=== PATIENT | male | born 1960 | race African-American/Black ===

== ENCOUNTER → 2016-03-29 | Outpatient (CLI) | payer MEDICARE ==
[~2016-03-29] VITALS: Ht 185.4 cm; Wt 145.0 kg
[~2016-03-29] MED LIST: CALC25 PO; METO50 PO; MYCO360T3 PO; NIFE60TA12 PO; OXYC30TA2 PO; PRED5 PO; TACR4TAB PO; WARF5 PO
[2016-03-29 12:09] VITALS: BP 135/87
== END | disposition home or self-care (01) ==
LOC: SRCNTR 11:52
PROVIDERS: ATTEND Hospitalist
DX: I10 Essential (primary) hypertension (principal); I49.9 Cardiac arrhythmia, unspecified; G89.29 Other chronic pain; Z90.5 Acquired absence of kidney
CPT/HCPCS: G0463

== ENCOUNTER → 2016-04-26 | Outpatient (CLI) | payer MEDICARE ==
[~2016-04-26] VITALS: Ht 185.4 cm; Wt 145.0 kg
[~2016-04-26] MED LIST changes: -METO50 PO
[2016-04-26 11:31] VITALS: BP 115/91
== END | disposition home or self-care (01) ==
LOC: SRCNTR 11:14
PROVIDERS: ATTEND Hospitalist
DX: I10 Essential (primary) hypertension (principal); I49.9 Cardiac arrhythmia, unspecified; I48.91 Unspecified atrial fibrillation; G89.4 Chronic pain syndrome; M54.9 Dorsalgia, unspecified; Z94.0 Kidney transplant status
CPT/HCPCS: G0463

== ENCOUNTER → 2016-05-21 | Outpatient (CLI) | payer MEDICARE ==
[~2016-05-21] VITALS: Ht 185.4 cm; Wt 148.0 kg
[2016-05-21 09:53] VITALS: BP 147/83
== END | disposition home or self-care (01) ==
LOC: SRCNTR 09:36
PROVIDERS: ATTEND Hospitalist
DX: I10 Essential (primary) hypertension (principal); I48.91 Unspecified atrial fibrillation; G89.4 Chronic pain syndrome; Z94.0 Kidney transplant status
CPT/HCPCS: G0463

== ENCOUNTER → 2016-06-21 | Outpatient (CLI) | payer MEDICARE ==
[~2016-06-21] VITALS: Ht 185.4 cm; Wt 139.0 kg
[~2016-06-21] MED LIST changes: +METO50 PO
[2016-06-21 09:51] VITALS: BP 148/101
== END | disposition home or self-care (01) ==
LOC: SRCNTR 09:48
PROVIDERS: ATTEND Hospitalist
DX: I10 Essential (primary) hypertension (principal); G89.4 Chronic pain syndrome; M62.838 Other muscle spasm; I49.9 Cardiac arrhythmia, unspecified; M54.9 Dorsalgia, unspecified; Z94.0 Kidney transplant status
CPT/HCPCS: G0463

== ENCOUNTER → 2016-07-29 | Outpatient (CLI) | payer MEDICARE ==
[~2016-07-29] VITALS: Ht 185.4 cm; Wt 144.0 kg
[2016-07-29 09:54] VITALS: BP 152/80
== END | disposition home or self-care (01) ==
LOC: SRCNTR 09:53
PROVIDERS: ATTEND Hospitalist
DX: I10 Essential (primary) hypertension (principal); I48.91 Unspecified atrial fibrillation; G89.29 Other chronic pain; Z94.0 Kidney transplant status; Z86.73 Personal history of transient ischemic attack (TIA), and cerebral infarction without residual deficits
CPT/HCPCS: G0463

== ENCOUNTER → 2016-08-27 | Outpatient (CLI) | payer MEDICARE ==
[~2016-08-27] VITALS: Ht 185.4 cm; Wt 141.9 kg
[2016-08-27 09:50] VITALS: BP 155/99
== END | disposition home or self-care (01) ==
LOC: SRCNTR 09:40
PROVIDERS: ATTEND Hospitalist
DX: I10 Essential (primary) hypertension (principal); E11.65 Type 2 diabetes mellitus with hyperglycemia; E78.5 Hyperlipidemia, unspecified; G89.4 Chronic pain syndrome; I48.91 Unspecified atrial fibrillation; Z86.73 Personal history of transient ischemic attack (TIA), and cerebral infarction without residual deficits
CPT/HCPCS: G0463

== ENCOUNTER → 2016-09-24 | Outpatient (CLI) | payer MEDICARE ==
[~2016-09-24] VITALS: Ht 185.4 cm; Wt 147.0 kg
[2016-09-24 09:25] VITALS: BP 166/92
== END | disposition home or self-care (01) ==
LOC: SRCNTR 09:09
PROVIDERS: ATTEND Hospitalist
DX: I10 Essential (primary) hypertension (principal); G89.4 Chronic pain syndrome
CPT/HCPCS: G0463

== ENCOUNTER → 2016-11-04 | Outpatient (CLI) | payer MEDICARE ==
[~2016-11-04] VITALS: Ht 185.4 cm; Wt 146.5 kg
[2016-11-04 09:31] VITALS: BP 151/91
== END | disposition home or self-care (01) ==
LOC: SRCNTR 09:23
PROVIDERS: ATTEND Hospitalist
DX: I10 Essential (primary) hypertension (principal); I48.91 Unspecified atrial fibrillation; G89.4 Chronic pain syndrome; E78.5 Hyperlipidemia, unspecified; Z86.73 Personal history of transient ischemic attack (TIA), and cerebral infarction without residual deficits; Z94.0 Kidney transplant status
CPT/HCPCS: G0463

== ENCOUNTER → 2016-12-02 | Outpatient (CLI) | payer MEDICARE ==
[~2016-12-02] VITALS: Ht 188 cm; Wt 145.0 kg
[~2016-12-02] MED LIST changes: +CARI350 PO
[2016-12-02 11:57] VITALS: BP 141/79
== END | disposition home or self-care (01) ==
LOC: SRCNTR 11:23
PROVIDERS: ATTEND Hospitalist
DX: I10 Essential (primary) hypertension (principal); I49.9 Cardiac arrhythmia, unspecified; I48.91 Unspecified atrial fibrillation; G89.4 Chronic pain syndrome; Z94.0 Kidney transplant status
CPT/HCPCS: G0463

== ENCOUNTER → 2016-12-30 | Outpatient (CLI) | payer MEDICARE ==
[~2016-12-30] VITALS: Ht 188 cm; Wt 144.9 kg
[2016-12-30 09:26] VITALS: BP 153/87
== END | disposition home or self-care (01) ==
LOC: SRCNTR 09:19
PROVIDERS: ATTEND Hospitalist
DX: I10 Essential (primary) hypertension (principal); G89.4 Chronic pain syndrome; I48.91 Unspecified atrial fibrillation; E78.5 Hyperlipidemia, unspecified; Z94.0 Kidney transplant status
CPT/HCPCS: G0463

== ENCOUNTER → 2017-01-27 | Outpatient (CLI) | payer MEDICARE ==
[~2017-01-27] VITALS: Ht 188 cm; Wt 144.9 kg
[~2017-01-27] MED LIST changes: -METO50 PO
[2017-01-27 11:04] VITALS: BP 153/90
== END | disposition home or self-care (01) ==
LOC: SRCNTR 10:51
PROVIDERS: ATTEND Hospitalist
DX: I10 Essential (primary) hypertension (principal); I48.91 Unspecified atrial fibrillation; G89.4 Chronic pain syndrome; Z94.0 Kidney transplant status
CPT/HCPCS: G0463

== ENCOUNTER → 2017-03-24 | Outpatient (CLI) | payer MEDICARE ==
[~2017-03-24] VITALS: Ht 188 cm; Wt 140.0 kg
[2017-03-24 09:29] VITALS: BP 130/86
== END | disposition home or self-care (01) ==
LOC: SRCNTR 09:26
PROVIDERS: ATTEND Hospitalist
DX: I10 Essential (primary) hypertension (principal); E11.9 Type 2 diabetes mellitus without complications; G89.4 Chronic pain syndrome
CPT/HCPCS: G0463

== ENCOUNTER → 2017-04-26 | Outpatient (CLI) | payer MEDICARE ==
[~2017-04-26] VITALS: Ht 188 cm; Wt 141.0 kg
[2017-04-27 09:06] VITALS: BP 127/65
== END | disposition home or self-care (01) ==
LOC: SRCNTR 15:30
PROVIDERS: ATTEND Hospitalist
DX: I10 Essential (primary) hypertension (principal); G89.29 Other chronic pain
CPT/HCPCS: 93288; G0463

== ENCOUNTER → 2017-05-26 | Outpatient (CLI) | payer MEDICARE ==
[~2017-05-26] VITALS: Ht 188 cm; Wt 140.0 kg
[~2017-05-26] MED LIST changes: +HYDR25TA84 PO
[2017-05-26 08:34] VITALS: BP 150/92
== END | disposition home or self-care (01) ==
LOC: SRCNTR 08:16
PROVIDERS: ATTEND Hospitalist
DX: I10 Essential (primary) hypertension (principal); M54.9 Dorsalgia, unspecified; G89.29 Other chronic pain; E11.9 Type 2 diabetes mellitus without complications; I48.91 Unspecified atrial fibrillation; Z94.0 Kidney transplant status
CPT/HCPCS: G0463

== ENCOUNTER → 2017-06-01 | Outpatient (CLI) | payer MEDICARE ==
[~2017-06-01] MED LIST changes: -HYDR25TA84 PO
== END | disposition home or self-care (01) ==
LOC: RADPV 09:03
PROVIDERS: ATTEND Hospitalist
DX: J98.11 Atelectasis (principal); I70.0 Atherosclerosis of aorta
CPT/HCPCS: 71046

== ENCOUNTER → 2017-06-27 | Outpatient (CLI) | payer MEDICARE ==
[~2017-06-27] VITALS: Ht 188 cm; Wt 143.0 kg
[~2017-06-27] MED LIST changes: +HYDR25TA84 PO
[2017-06-27 10:24] VITALS: BP 119/76
== END | disposition home or self-care (01) ==
LOC: SRCNTR 10:12
PROVIDERS: ATTEND Hospitalist
DX: I10 Essential (primary) hypertension (principal); G89.4 Chronic pain syndrome; I48.91 Unspecified atrial fibrillation; M54.5 Low back pain; E66.9 Obesity, unspecified; E11.9 Type 2 diabetes mellitus without complications; Z94.0 Kidney transplant status
CPT/HCPCS: G0463

== ENCOUNTER → 2017-07-28 | Outpatient (CLI) | payer MEDICARE ==
[~2017-07-28] VITALS: Ht 188 cm; Wt 152.0 kg
[2017-07-28 09:05] VITALS: BP 135/65
== END | disposition home or self-care (01) ==
LOC: SRCNTR 09:03
PROVIDERS: ATTEND Hospitalist
DX: I10 Essential (primary) hypertension (principal); I48.91 Unspecified atrial fibrillation; M54.5 Low back pain; E66.9 Obesity, unspecified; E11.9 Type 2 diabetes mellitus without complications; G89.4 Chronic pain syndrome; Z94.0 Kidney transplant status
CPT/HCPCS: G0463

== ENCOUNTER → 2017-08-25 | Outpatient (CLI) | payer MEDICARE ==
[~2017-08-25] VITALS: Ht 188 cm; Wt 150.0 kg
[2017-08-25 09:33] VITALS: BP 132/81
== END | disposition home or self-care (01) ==
LOC: SRCNTR 09:23
PROVIDERS: ATTEND Hospitalist
DX: I10 Essential (primary) hypertension (principal); E78.5 Hyperlipidemia, unspecified; M54.5 Low back pain; G89.4 Chronic pain syndrome; Z94.0 Kidney transplant status
CPT/HCPCS: G0463

== ENCOUNTER → 2017-12-22 | Outpatient (CLI) | payer MEDICARE ==
[~2017-12-22] VITALS: Ht 188 cm; Wt 139.0 kg
[~2017-12-22] MED LIST changes: +DSS100 PO
[2017-12-22 09:09] VITALS: BP 150/90
== END | disposition home or self-care (01) ==
LOC: SRCNTR 09:02
PROVIDERS: ATTEND Hospitalist
DX: M79.671 Pain in right foot (principal); I10 Essential (primary) hypertension; E78.5 Hyperlipidemia, unspecified; I48.91 Unspecified atrial fibrillation; G89.4 Chronic pain syndrome; E66.9 Obesity, unspecified; Z94.0 Kidney transplant status
CPT/HCPCS: G0463

== ENCOUNTER → 2018-01-12 | Outpatient (CLI) | payer MEDICARE ==
[~2018-01-12] VITALS: Ht 188 cm; Wt 146.8 kg
[~2018-01-12] MED LIST changes: -CARI350 PO
[2018-01-12 09:16] VITALS: BP 164/99
== END | disposition home or self-care (01) ==
LOC: SRCNTR 09:05
PROVIDERS: ATTEND Hospitalist
DX: I48.91 Unspecified atrial fibrillation (principal); M10.9 Gout, unspecified; E78.5 Hyperlipidemia, unspecified; I10 Essential (primary) hypertension; E11.65 Type 2 diabetes mellitus with hyperglycemia; Z94.4 Liver transplant status
CPT/HCPCS: G0463

== ENCOUNTER → 2018-02-09 | Outpatient (CLI) | payer MEDICARE ==
[~2018-02-09] VITALS: Ht 188 cm; Wt 144.5 kg
[2018-02-09 08:43] VITALS: BP 151/88
== END | disposition home or self-care (01) ==
LOC: SRCNTR 08:36
PROVIDERS: ATTEND Hospitalist
DX: E78.5 Hyperlipidemia, unspecified (principal); I48.91 Unspecified atrial fibrillation; G89.4 Chronic pain syndrome; M54.5 Low back pain
CPT/HCPCS: G0463

== ENCOUNTER → 2018-03-09 | Outpatient (CLI) | payer MEDICARE ==
[~2018-03-09] VITALS: Ht 182.9 cm; Wt 144.5 kg
[2018-03-09 09:36] VITALS: BP 121/87
== END | disposition home or self-care (01) ==
LOC: SRCNTR 09:09
PROVIDERS: ATTEND Hospitalist
DX: I10 Essential (primary) hypertension (principal); I48.91 Unspecified atrial fibrillation; M54.2 Cervicalgia; M54.9 Dorsalgia, unspecified; G89.4 Chronic pain syndrome; Z94.0 Kidney transplant status
CPT/HCPCS: G0463

== ENCOUNTER → 2018-04-06 | Outpatient (CLI) | payer MEDICARE ==
[~2018-04-06] VITALS: Ht 188 cm; Wt 140.0 kg
[2018-04-06 08:56] VITALS: BP 166/94
== END | disposition home or self-care (01) ==
LOC: SRCNTR 08:54
PROVIDERS: ATTEND Hospitalist
DX: I10 Essential (primary) hypertension (principal); E11.65 Type 2 diabetes mellitus with hyperglycemia; G89.4 Chronic pain syndrome; M54.5 Low back pain
CPT/HCPCS: G0463

== ENCOUNTER → 2018-05-04 | Outpatient (CLI) | payer MEDICARE ==
[~2018-05-04] VITALS: Ht 188 cm; Wt 137.0 kg
[2018-05-04 08:47] VITALS: BP 144/87
== END | disposition home or self-care (01) ==
LOC: SRCNTR 08:10
PROVIDERS: ATTEND Hospitalist
DX: I48.91 Unspecified atrial fibrillation (principal); I10 Essential (primary) hypertension; M54.5 Low back pain; G89.4 Chronic pain syndrome; Z94.0 Kidney transplant status
CPT/HCPCS: G0463

== ENCOUNTER → 2019-04-18 | Outpatient (CLI) | payer MEDICARE ==
[~2019-04-18] VITALS: Ht 185.4 cm; Wt 135.0 kg
[2019-04-18 10:06] VITALS: BP 133/82
== END | disposition home or self-care (01) ==
LOC: SRCNTR 10:01
PROVIDERS: ATTEND Hospitalist
DX: I48.91 Unspecified atrial fibrillation (principal); I10 Essential (primary) hypertension; M54.9 Dorsalgia, unspecified; M54.2 Cervicalgia; Z94.0 Kidney transplant status
CPT/HCPCS: G0463

== ENCOUNTER → 2019-08-16 | Outpatient (CLI) | payer MEDICARE ==
[~2019-08-16] MED LIST changes: -WARF5 PO; +WARF5TAB40 PO
== END | disposition home or self-care (01) ==
LOC: SRCNTR 11:27
PROVIDERS: ATTEND Hospitalist
DX: I10 Essential (primary) hypertension (principal); I48.91 Unspecified atrial fibrillation; M54.2 Cervicalgia; M54.9 Dorsalgia, unspecified; Z94.0 Kidney transplant status; Z79.899 Other long term (current) drug therapy; Z79.891 Long term (current) use of opiate analgesic; Z79.01 Long term (current) use of anticoagulants
CPT/HCPCS: Q3014

== ENCOUNTER → 2019-09-13 | Outpatient (CLI) | payer MEDICARE | END | disposition home or self-care (01) | LOC: SRCNTR 13:39 | PROVIDERS: ATTEND Hospitalist | DX: M54.5 Low back pain (principal); G89.29 Other chronic pain; I10 Essential (primary) hypertension; I48.91 Unspecified atrial fibrillation; Z94.0 Kidney transplant status | CPT/HCPCS: Q3014 ==

== ENCOUNTER → 2019-10-18 | Outpatient (CLI) | payer MEDICARE | END | disposition home or self-care (01) | LOC: SRCNTR 12:03 | PROVIDERS: ATTEND Hospitalist | DX: I11.9 Hypertensive heart disease without heart failure (principal); I48.91 Unspecified atrial fibrillation; E78.5 Hyperlipidemia, unspecified; M54.9 Dorsalgia, unspecified; M54.2 Cervicalgia; Z94.0 Kidney transplant status; Z79.01 Long term (current) use of anticoagulants; Z79.891 Long term (current) use of opiate analgesic; Z79.899 Other long term (current) drug therapy | CPT/HCPCS: G0463; Q3014 ==

== ENCOUNTER → 2019-11-22 | Outpatient (CLI) | payer MEDICARE | END | disposition home or self-care (01) | LOC: SRCNTR 12:35 | PROVIDERS: ATTEND Hospitalist | DX: M54.5 Low back pain (principal); I10 Essential (primary) hypertension; I48.91 Unspecified atrial fibrillation; Z94.0 Kidney transplant status; Z79.899 Other long term (current) drug therapy | CPT/HCPCS: Q3014 ==

== ENCOUNTER → 2019-12-20 | Outpatient (CLI) | payer MEDICARE | END | disposition home or self-care (01) | LOC: SRCNTR 10:39 | PROVIDERS: ATTEND Hospitalist | DX: M54.5 Low back pain (principal); I10 Essential (primary) hypertension; I48.91 Unspecified atrial fibrillation; Z94.0 Kidney transplant status | CPT/HCPCS: Q3014 ==

== ENCOUNTER → 2020-01-17 | Outpatient (CLI) | payer MEDICARE ==
[~2020-01-17] VITALS: Ht 188 cm; Wt 148.4 kg
[~2020-01-17] MED LIST changes: +APIX5TAB PO
[2020-01-17 11:14] VITALS: BP 116/65
== END | disposition home or self-care (01) ==
LOC: SRCNTR 10:27
PROVIDERS: ATTEND Hospitalist
DX: I10 Essential (primary) hypertension (principal); I48.91 Unspecified atrial fibrillation; M54.5 Low back pain; M54.2 Cervicalgia; G89.29 Other chronic pain
CPT/HCPCS: G0463; Z7500

== ENCOUNTER → 2020-03-20 | Outpatient (CLI) | payer MEDICARE ==
[~2020-03-20] MED LIST changes: -WARF5TAB40 PO
== END | disposition home or self-care (01) ==
LOC: SRCNTR 11:30
PROVIDERS: ATTEND Hospitalist
DX: I10 Essential (primary) hypertension (principal); I48.91 Unspecified atrial fibrillation; M54.5 Low back pain; M54.2 Cervicalgia
CPT/HCPCS: G0463; Z7500

== ENCOUNTER → 2020-04-24 | Outpatient (CLI) | payer MEDICARE ==
[~2020-04-24] VITALS: Ht 182.9 cm; Wt 143.3 kg
[~2020-04-24] MED LIST changes: +PRED-409 PO; -PRED5 PO
[2020-04-24 12:30] VITALS: BP 129/70
== END | disposition home or self-care (01) ==
LOC: SRCNTR 10:24
PROVIDERS: ATTEND Hospitalist
DX: I10 Essential (primary) hypertension (principal); I48.91 Unspecified atrial fibrillation; G89.29 Other chronic pain; M54.2 Cervicalgia
CPT/HCPCS: G0463

== ENCOUNTER → 2020-05-22 | Outpatient (CLI) | payer MEDICARE ==
[2020-05-22 10:49] VITALS: BP 154/84
== END | disposition home or self-care (01) ==
LOC: SRCNTR 10:36
PROVIDERS: ATTEND Hospitalist
DX: I10 Essential (primary) hypertension (principal); I48.91 Unspecified atrial fibrillation; G89.29 Other chronic pain; M54.5 Low back pain; M54.2 Cervicalgia
CPT/HCPCS: G0463; Z7500

== ENCOUNTER → 2020-06-19 | Outpatient (CLI) | payer MEDICARE ==
[~2020-06-19] VITALS: Ht 182.9 cm; Wt 139.2 kg
[2020-06-19 11:16] VITALS: BP 110/56
== END | disposition home or self-care (01) ==
LOC: SRCNTR 10:20
PROVIDERS: ATTEND Hospitalist
DX: I10 Essential (primary) hypertension (principal); G89.29 Other chronic pain; M54.9 Dorsalgia, unspecified; I48.91 Unspecified atrial fibrillation; Z94.0 Kidney transplant status
CPT/HCPCS: G0463; Z7500

== ENCOUNTER → 2020-07-24 | Outpatient (CLI) | payer MEDICARE ==
[2020-07-24 09:55] VITALS: BP 126/77
== END | disposition home or self-care (01) ==
LOC: SRCNTR 09:32
PROVIDERS: ATTEND Hospitalist
DX: I10 Essential (primary) hypertension (principal); I48.91 Unspecified atrial fibrillation; M54.9 Dorsalgia, unspecified; M54.2 Cervicalgia; Z79.899 Other long term (current) drug therapy
CPT/HCPCS: G0463; Z7500

== ENCOUNTER → 2020-08-21 | Outpatient (CLI) | payer MEDICARE ==
[~2020-08-21] VITALS: Ht 188 cm; Wt 138.0 kg
[2020-08-21 10:29] VITALS: BP 156/76
== END | disposition home or self-care (01) ==
LOC: SRCNTR 09:47
PROVIDERS: ATTEND Hospitalist
DX: I10 Essential (primary) hypertension (principal); I48.91 Unspecified atrial fibrillation; M54.5 Low back pain; M54.2 Cervicalgia; Z79.899 Other long term (current) drug therapy
CPT/HCPCS: G0463; Z7500